=== PATIENT | male | born 1950 | race Caucasian/White ===

== ENCOUNTER → 2018-12-24 20:38 | Outpatient (REF) | payer SELFPAY ==
[2018-12-24 20:56] LABS: Hematocrit 32.2 % (40-54); Hemoglobin 9.4 g/dL (13.0-16.5); Mean Corp Hgb Conc 29.2 g/dL (32-36); Mean Corpuscular Hgb 23.8 pg (27.0-32.0); Mean Corpuscular Volume 81.5 fL (80-94); Mean Platelet Vol. 9.6 fl (6.2-12.0); POSITIVE MORPHOLOGY YES; Platelet Count 352 K/mm3 (150-450); RBC Distribution Width CV 22.6 % (11.6-14.6); RBC Distribution Width SD 66.6 fl (35.1-43.9); Red Blood Count 3.95 M/mm3 (4.6-6.2); White Blood Count 8.5 K/mm3 (4.4-11.0)
[2018-12-24 21:08] LABS: Scan Indicated on CBC? Y/N YES- FLAGS NOTED
[2018-12-24 21:12] LABS: Anion Gap 10 (5-15); BUN 50 mg/dL (7-18); BUN/Creat Ratio 21.3 RATIO (10-20); Calcium,Total 9.7 mg/dL (8.5-10.1); Chloride 96 mmol/L (98-107); Creatinine, Serum 2.35 mg/dL (0.70-1.30); EST Glomerular Filtration Rate 29 mL/min (>60); Est Glom Filt Rate - Afr Amer 36 mL/min (>60); Glucose 110 mg/dL (74-106); Potassium 3.7 mmol/L (3.5-5.1); Sodium Level 138 mmol/L (136-145)
[2018-12-24 21:26] LABS: Differential Comment SCANNED
== END ==
LOC: OLS.ACW200 20:38
PROVIDERS: Referring Provider Family Medicine; Visit Provider Family Medicine
DX: Z47.32 Aftercare following explantation of hip joint prosthesis (principal); T84.51XD Infection and inflammatory reaction due to internal right hip prosthesis, subsequent encounter; A49.02 Methicillin resistant Staphylococcus aureus infection, unspecified site
CPT/HCPCS: 80048; 85027; 87040